=== PATIENT | female | born 1955 | race American Indian/Alaskan Native ===

== ENCOUNTER 2019-06-06 08:53 | Inpatient (IN) ==
--- NOTE | 2019-05-31 15:02 | PAT Medication Instructions ---
Medication Instructions Date of Service May 31, 2019 Home Medications acetaminophen [Tylenol Arthritis Pain] 1,300 mg PO Q12H PRN amlodipine 5 mg PO QAM aspirin 325 mg PO DAILY clonazepam [Klonopin] 1 mg PO HS cranberry 1,500 mg PO QAM diclofenac sodium 75 mg PO BID PRN fluoxetine 20 mg PO QAM ginkgo biloba 40 mg PO DAILY levetiracetam [Keppra] 1,000 mg PO QAM multivitamin [Multiple Vitamins] 1 tab PO DAILY oxycodone 5 mg PO Q8H PRN rosuvastatin [Crestor] 10 mg PO QAM turmeric 400 mg PO DAILY ASK your surgeon for instructions diclofenac sodium 75 mg PO BID PRN ASK your prescriber and surgeon aspirin 325 mg PO DAILY STOP taking 2 weeks before surgery (or as soon as possible if surgery is within 2 weeks) cranberry 1,500 mg PO QAM ginkgo biloba 40 mg PO DAILY turmeric 400 mg PO DAILY DO NOT take the morning of surgery multivitamin [Multiple Vitamins] 1 tab PO DAILY Take morning of surgery With a small sip of water, OTHERWISE NOTHING TO EAT OR DRINK AFTER MIDNIGHT: acetaminophen [Tylenol Arthritis Pain] 1,300 mg PO Q12H PRN (okay to take up to 4 hours prior to surgery if needed) amlodipine 5 mg PO QAM fluoxetine 20 mg PO QAM levetiracetam [Keppra] 1,000 mg PO QAM oxycodone 5 mg PO Q8H PRN (okay to take up to 4 hours prior to surgery if needed) rosuvastatin [Crestor] 10 mg PO QAM Take evening before surgery acetaminophen [Tylenol Arthritis Pain] 1,300 mg PO Q12H PRN (if needed) clonazepam [Klonopin] 1 mg PO HS oxycodone 5 mg PO Q8H PRN (if needed) Other Notes If you have any questions please call us at [phone] or [phone] or [phone] or [phone]
--- NOTE | 2019-05-31 15:24 | Anesthesiology Consultation ---
Date of Service May 31, 2019 Assessment & Plan (1) Encounter for pre-operative examination: Chart Review Chart Review: Acceptable Risk for Surgery (pending preop testing (labs, EKG, CXR)) and Patient seen in Pre Admission Testing Teaching & Discussion Pre-Anesthesia Teaching/Discussion Notes: Instructed NPO after midnight before surgery,except medications with 15 cc of water. Medication instructions provided according to the PAT guidelines. History Surgery Operation Date: 06/06/19 13:05 Proposed Procedures p L3-L5 Decompression and Fusion with Spinal Cord Monitoring - Cody Hanna DO Height/Weight Height: 5 ft 3 in Weight: 57.2 kg Allergies Allergy/AdvReac Type Severity Reaction Status Date / Time No Known Allergies Allergy Verified 05/31/19 14:37 Medications Home Medications Medication Instructions Recorded Confirmed Last Taken acetaminophen [Tylenol Arthritis 1,300 mg PO Q12H PRN 05/31/19 05/31/19 Unknown Pain] amlodipine 5 mg PO QAM 05/31/19 05/31/19 Unknown aspirin 325 mg PO DAILY 05/31/19 05/31/19 Unknown clonazepam [Klonopin] 1 mg PO HS 05/31/19 05/31/19 Unknown cranberry 1,500 mg PO QAM 05/31/19 05/31/19 Unknown diclofenac sodium 75 mg PO BID PRN 05/31/19 05/31/19 Unknown fluoxetine 20 mg PO QAM 05/31/19 05/31/19 Unknown ginkgo biloba 40 mg PO DAILY 05/31/19 05/31/19 Unknown levetiracetam [Keppra] 1,000 mg PO QAM 05/31/19 05/31/19 Unknown multivitamin [Multiple Vitamins] 1 tab PO DAILY 05/31/19 05/31/19 Unknown oxycodone 5 mg PO Q8H PRN 05/31/19 05/31/19 Unknown rosuvastatin [Crestor] 10 mg PO QAM 05/31/19 05/31/19 Unknown turmeric 400 mg PO DAILY 05/31/19 05/31/19 Unknown Past Medical History Medical History 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 = neurology monitoring, plan for repeat imaging 2019 Anxiety Chronic back pain Degenerative disc disease Depression Hyperlipidemia Hypertension Osteoarthritis Spinal stenosis Stroke bilateral infarctions of unclear etiology in setting of dehydration (2011)- residual memory loss, RUE weakness, depression/anxiety Transient ischemic attack (TIA) 2011 Exercise / Class Metabolic Activity III < 4 Walking/Shop/Light housework Past Surgical History Surgical History H/O left knee surgery History of colonoscopy History of tooth extraction S/P nasal surgery reconstruction surgery Past Anesthesia History No Hx of Anesthesia Complications and No Family Hx of Anesthesia Complications History of PONV No Hx of PONV and No Hx of Motion Sickness Social History Smoking Status: Current every day smoker tobacco type: cigarettes Smoking cigarettes per day: 4 Do You Dip or Chew Tobacco: No Hx Alcohol Use: Yes Alcohol type: beer alcohol intake frequency: other Hx Substance Use: Yes (medical card) substance use type: marijuana Last Used Substance Other:: 1 month ago Review of Systems Patient denies chest pain, shortness of breath, reflux, cough, wheezing, palpitations. Physical Exam Vital Signs VITALS BP 116/65 P 77 TEMP 98.0 SP02 95%RA RESP 20 PHYSICAL Full neck and c-spine range of motion. Full TMJ range of motion. TMD 3 finger breaths Mallampati Score 3 Dentition: partial dentures on upper/lower Lungs: clear throughout to auscultation Cardiac: regular rate and rhythm, no murmurs noted Spine: normal Carotid arteries: negative bruit Extremities: no edema Testing Other Testing MRI sb: 09/09/18: No acute intracranial abnormality detected on noncontrast MR imaging of the brain. Bilateral supratentorial multifocal encephalomalacia/gliosis compatible with sequela of chronic ischemic infarctions, as described above. Small chronic infarctions within the left caudate nucleus. Additional patchy nonspecific signal abnormality within cerebral white matter and haseeb may in the appropriate clinical setting represent sequelae of chronic small vessel ischemic disease. The patient's known left ICA terminus aneurysm is suboptimally evaluated, and best depicted on the prior MRA head exam.
--- NOTE | 2019-05-31 16:02 | XRay Report ---
XR chest Pre-admission PA/Lat HISTORY: Preop. COMPARISON: None. FINDINGS: Mild diffuse interstitial thickening. This is likely chronic. No focal lung consolidations to suggest pneumonia. No evidence for pulmonary edema. The heart is normal in size. No pleural effusi ons. No pneumothorax. The lungs are mildly hyperexpanded with apical predominant emphysematous change s. IMPRESSION: Emphysema with mild interstitial thickening which is likely chronic. Otherwise, no acute process with in the chest. Electronically signed by: Fredrick Barreto M.D. 05/31/2019 4:01 PM
[2019-05-31 16:38] LABS: Basophils # (auto) 0.02 K/uL (0-0.2); Basophils % (auto) 0.3 %; Eosinophils # (auto) 0.25 K/uL (0-0.5); Eosinophils % (auto) 3.3 %; Hematocrit (blood only) 39.6 % (37-47); Hemoglobin 12.9 g/dL (12.0-16.0); Immature Granulocytes # (auto) 0.02 K/uL (0.00-0.02); Immature Granulocytes % (auto) 0.3 %; Lymphocytes % (auto) 28.8 %; Mean Corpuscular Hgb Conc 32.6 g/dL (32-36); Mean Corpuscular Volume 99.5 fL (80-100); Mean Platelet Volume 9.9 fL (7.4-10.4); Monocytes # (auto) 0.64 K/uL (0.11-0.59); Monocytes % (auto) 8.4 %; Neutrophils % (auto) 58.9 %; Platelet Count 394 K/uL (130-400); RDW Coefficient of Variation 15.5 % (11.5-14.5); RDW Standard Deviation 56.3 fL (36.4-46.3); Red Blood Count 3.98 M/uL (4.2-5.4); White Blood Count 7.63 K/uL (4.8-10.8)
[2019-05-31 16:45] LABS: BUN Creatinine Ratio 26.5 (10-20); Calcium 8.9 mg/dl (8.5-10.1); Creatinine Clr Calc Pharmacy 58.9 ml/min; Est GFR (African American) 88.2; Est GFR (Non-African American) 76.1; Potassium 4.1 mmol/L (3.5-5.1)
[2019-05-31 16:48] LABS: INR 0.9 (0.9-1.1); Partial Thromboplastin Ratio 0.8; Prothrombin Time 9.7 Seconds (9.0-12.0)
[2019-05-31 16:55] LABS: Appearance Urine Cloudy (Clear); Bacteria Urine Automated 4+ (Negative); Blood Urine Negative (Negative); Color Urine Dark Yellow; Epithelial Cell Urine Auto >30 /lpf (0-5); Glucose Urine UA Negative (Negative); Ketones Urine Trace (Negative); Leukocyte Esterase Urine Trace (Negative); Nitrite Urine Positive (Negative); Protein Urine Negative (Negative); Specific Gravity Urine 1.034 (1.000-1.030); Urobilinogen Urine Negative (Negative)
[2019-05-31 16:58] LABS: Bilirubin Urine Negative (Negative); Ictotest Urine Negative (Negative)
[~2019-06-06 08:53] MED LIST: ACETAMINOPHEN 500 MG TAB PO SCH; CEFAZOLIN 1000MG 1,000 MG/7.5 ML SYR IV SCH; CeleBREX 200 MG CAP PO SCH; GABAPENTIN 600 MG DOSE PO SCH; LR 15ML/HR IV SCH
[2019-06-06] MEDS ORDERED: fentaNYL citrate 100 MCG/2 ML VIAL ONE ×2 (09:19→12:37)
[2019-06-06] MEDS ORDERED: MIDAZOLAM HCL 1 MG/ML 2ML VIAL ONE (09:19)
--- NOTE | 2019-06-06 10:18 | History & Physical Bridge Note ---
Date of Service June 06, 2019 History & Physical Bridge Note I have examined the patient, reviewed the History & Physical and in the interval since the performance of the History & Physical I have noted the following changes of clinical significance: no changes noted
--- NOTE | 2019-06-06 10:19 | History & Physical Report ---
Date of Service June 06, 2019 Assessment & Plan (1) Spinal stenosis, lumbar region with neurogenic claudication: L3-L5 decompression and fusion Present on Admission?: Yes History of Present Illness Chief Complaint: Back and leg pain Primary Care Provider: Dayami Root PA-C This is a 63-year-old female who presents with worsening back and bilateral leg pain. After failing extensive course of nonoperative care is here for surgical intervention. Allergies Allergy/AdvReac Type Severity Reaction Status Date / Time No Known Allergies Allergy Verified 06/06/19 09:17 Home Medications Home Medications Medication Instructions Recorded Confirmed Type acetaminophen [Tylenol Arthritis 1,300 mg PO Q12H PRN 05/31/19 06/06/19 History Pain] amlodipine 5 mg PO QAM 05/31/19 06/06/19 History aspirin 325 mg PO DAILY 05/31/19 06/06/19 History clonazepam [Klonopin] 1 mg PO HS 05/31/19 06/06/19 History cranberry 1,500 mg PO QAM 05/31/19 06/06/19 History diclofenac sodium 75 mg PO BID PRN 05/31/19 06/06/19 History fluoxetine 20 mg PO QAM 05/31/19 06/06/19 History ginkgo biloba 40 mg PO DAILY 05/31/19 06/06/19 History levetiracetam [Keppra] 500 mg PO BID 05/31/19 06/06/19 History multivitamin [Multiple Vitamins] 1 tab PO DAILY 05/31/19 06/06/19 History oxycodone 5 mg PO Q8H PRN 05/31/19 06/06/19 History rosuvastatin [Crestor] 10 mg PO QAM 05/31/19 06/06/19 History turmeric 400 mg PO DAILY 05/31/19 06/06/19 History Past Med/Surg History Medical History 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 = neurology monitoring, plan for repeat imaging 2019 Anxiety Chronic back pain Degenerative disc disease Depression Hyperlipidemia Hypertension Osteoarthritis Spinal stenosis Stroke bilateral infarctions of unclear etiology in setting of dehydration (2011)- residual memory loss, RUE weakness, depression/anxiety Transient ischemic attack (TIA) 2011 Surgical History H/O left knee surgery History of colonoscopy History of tooth extraction S/P nasal surgery reconstruction surgery Social History Preferred Language: Gambian Communication Ability: Effective Preschool Head Teacher Required: No Beliefs That Will Affect Care: None Current Living Situation: Alone Other Information That Helps Us Care for You: No Feels Safe at Home: Yes Safety Concerns: Feels Safe At This Time Smoking Status: Current every day smoker Tobacco Type: cigarettes ; Cigarettes Per Day: 4 ; Do You Dip or Chew Tobacco: No ; Second Hand Exposure: No ; Tobacco Cessation Education Requested by Patient: No Hx Alcohol Use: Yes Alcohol type: beer Hx Substance Use: Yes (medical card) substance use type: marijuana Last Used Vyas bstance Other:: 1 month ago Physical Exam Physical Exam: Patient is alert and oriented neurologically intact. Results & Data Vital Signs (Past 12 Hours) Vital Signs Temp Pulse Resp BP Pulse Ox 06/06/19 09:29 36.5 C 63 18 152/94 H 99
[2019-06-06] MEDS ORDERED: BACITRACIN INJ 50,000 UNIT VIAL ONE (10:42)
[2019-06-06] MEDS ORDERED: BUPIVACAINE/EPINEPHRINE 0.5% MPF 1:200,000 30 ML VIAL ONE (10:42)
[2019-06-06] MEDS ORDERED: fentaNYL citrate 100 MCG/2 ML VIAL IV PRN (11:21)
[2019-06-06] MEDS ORDERED: HYDROmorphone INJ 1 MG/ML SYRINGE IV PRN (11:21)
[2019-06-06] MEDS ORDERED: ONDANSETRON INJ 2 MG/ML 2 ML VIAL IV PRN ×2 (11:21→15:06)
[2019-06-06] MEDS ORDERED: ATROPINE SULFATE 0.1 MG/ML 10ML SYR IV PRN (11:21)
[2019-06-06] MEDS ORDERED: ePHEDrine sulfate 50 MG/ML AMP IV PRN (11:21)
--- NOTE | 2019-06-06 11:29 | Procedure Note ---
Procedure Note Date of Service June 06, 2019 Radial arterial line placed in OR 4 after induction in preparation for back surgery with Dr. Hanna. Left wrist prepped with chlorhexidine and draped with sterile towels. 20 G angiocath placed under sterile technique utilizing sterile gloves, surgical hats and masks. Catheter threaded using seldinger technique with return of pulsatile, bright red blood. Site covered with occlusive dressing and taped in place. Waveform consistent with correct arterial placement. After placement, fingers of procedural hand had normal perfusion. Patient tolerated procedure well without complications. Coding
[2019-06-06] MEDS ORDERED: ONDANSETRON INJ 2 MG/ML 2 ML VIAL ONE (12:12)
[2019-06-06] MEDS ORDERED: PHENYLEPHRINE HCL 10 MG/ML VIAL ONE (12:12)
[2019-06-06] MEDS ORDERED: ROCURONIUM BROMIDE 10 MG/ML 5 ML VIAL ONE (12:12)
[2019-06-06] MEDS ORDERED: PROPOFOL IV EMULSION 10 MG/ML 20 ML VIAL IV ONE (12:12)
[2019-06-06] MEDS ORDERED: LIDOCAINE HCL 2% 2 ML VIAL/AMP(20MG/ML) INFIL ONE (12:12)
[2019-06-06] MEDS ORDERED: ePHEDrine sulfate 50 MG/ML SYR ONE (12:12)
[2019-06-06] MEDS ORDERED: DEXAMETHASONE SOD INJ 4 MG/ML VIAL ONE (12:12)
[2019-06-06] MEDS ORDERED: NEOSTIGMINE METHYLSULFATE 1 MG/ML 10ML VIAL ONE (12:59)
[2019-06-06] MEDS ORDERED: GLYCOPYRROLATE 0.2 MG/ML VIAL ONE (12:59)
[2019-06-06] MEDS ORDERED: FLOSEAL HEMOSTATIC MATRIX 10ML TOP ONE (13:04)
--- NOTE | 2019-06-06 13:07 | Operative Report ---
Post Operative Report Pre & Post Diagnosis Operation Date: 06/06/19 10:25 Pre-Op Diagnosis: Spinal stenosis L3-L5 with neurogenic claudication Spondylolisthesis L4-5 Post-Op Diagnosis: Same Procedure Operation Date: 06/06/19 10:25 Actual Procedures #1 lumbar decompression with bilateral medial facetectomies foraminotomies L2-3 L3-4 L4-5. #2 posterior spinal fusion L3-4 L4-5 per #3 placed posterior instrumentation L3-4 L4-5 per #4 interbody fusion L3-4 and L4-5. #5 placed a peek cage 9 x 22 mm at L3-4 and 11 x 22 mm at L4-5 per #6 basement of local autograft in the posterior lateral gutters per #7 placement infuse collagen sponge combined with mass graft in the posterior lateral gutters. Surgeon Cody Hanna, DO [employer]ulic [employer] Tool Operator Susan Manuel Estimated Blood Loss 75 Findings Consistent with Post-Op Diagnosis Specimens None Indications This is a 63-year-old female presents with above-mentioned diagnosis after failing extensive course of nonoperative care elected to undergo the above- mentioned procedure. Description of Procedure Patient was met with identified and informed consent obtained. Patient was then taken to the operative suite underwent intubation placed in the prone position on the Geovany table on top of the Jean Paul frame. All bony prominences well- padded eyes inspected to ensure no external pressure placed upon the peer at this point the lumbar spine was prepped and draped in a normal sterile fashion. Sharp dissection with the assistance of Bovie cautery was performed down to and exposing the lamina and transverse processes of L3-L4-L5 bilaterally. From a caudal cephalad fashion complete laminectomy of L4 L3 and partial laminectomy of L2 was performed including bilateral medial facetectomies foraminotomies addressing severe stenosis. Obvious instability at L4-5 consistent with her spinal listhesis also noted. Pedicle screw was then placed in L3-L4-L5 bilaterally with assistance of fluoroscopy the process collin placed. By way of a trans-foraminal approach on the right a complete discectomy of L4-5 was performed endplates curetted to subcortical bleeding bone and a 11 x 22 mm peek cage filled with osteo-amp bone graft tapped in position. Then proceeded L3-[address] of a transforaminal approach complete discectomy performed endplates curetted to subcortical bleeding bone and a 9 x 22 mm peek cage filled with ostium bone graft tapped in position. The rods were then compressed and locked in final position bilaterally. The transverse processes of L3-L4-L5 bur to subcortical bleeding bone. Infuse collagen sponge mass graft and locally harvested morselized autograft placed in the posterior lateral gutters. 15 round LEVAR drain inserted. The incision was then closed with 1 Vicryl in the fascia 2-0 Vicryl subcutaneous and 4 Monocryl for final skin closure. Steri- Strip sterile dressings placed. Patient will continue PACU stable disc. Please note Susan Manuel present throughout the entire procedure involved in patient positioning complex portions of the surgery and final skin closure. Lastly spinal cord monitoring was utilized that the procedure no changes noted. I attest to the content of the Intraoperative Record and any orders documented therein. Any exceptions are noted below.
--- NOTE | 2019-06-06 13:54 | Fluoroscopy Report ---
FL lumbar spine 2-3V CLINICAL HISTORY: L3-L5 DECOMPRESSION AND FUSION COMPARISON STUDY: None. FLUOROSCOPY TIME: 17 seconds. FLUOROSCOPIC IMAGES: 2. FINDINGS: These images demonstrate L3-L4 and L4-L5 discectomies with interbody spacer placement. Post erior decompression is noted with bilateral pedicle screws at the L3, L4 and L5 levels. There are int erconnecting rods. Hardware is intact. IMPRESSION: Fluoroscopic images demonstrating L3-L5 discectomy and posterior fusion. Electronically signed by: Abel Cortes M.D. 06/06/2019 1:53 PM
--- NOTE | 2019-06-06 14:13 | Anesthesiology Progress Note ---
Date of Service June 06, 2019 Anesthesia Post Procedure Vital Signs Vital Signs: Temp Pulse Pulse Resp BP Pulse Ox 06/06/19 14:00 36.2 C L 60 15 137/64 100 06/06/19 13:50 66 12 129/67 100 06/06/19 13:40 65 14 130/72 100 06/06/19 13:30 75 16 109/77 100 06/06/19 13:20 36.2 C L 85 14 123/70 100 06/06/19 09:29 36.5 C 63 18 152/94 H 99 Pain Intensity Lower Back: Pain Intensity: 10 Transfer of Care Handoff Completed per policy Notes Mental Status: alert / awake / arousable and participated in evaluation Patient Amnestic to Procedure: Yes Nausea / Vomiting: adequately controlled Pain: adequately controlled Airway Patency, RR, SpO2: stable & adequate BP & HR: stable & adequate Hydration State: stable & adequate Anesthetic Complications: no major complications apparent and Pt Satisfied with anesthetic care Notes: Moving all extremities and back to preoperative baseline with respect to speech and mentation.
[2019-06-06] MEDS ORDERED: BISACODYL 10 MG SUPP PR PRN (15:06)
[2019-06-06] MEDS ORDERED: LORazepam 0.5 MG TAB PO PRN (15:06)
[2019-06-06] MEDS ORDERED: METOCLOPRAMIDE HCL INJ 5 MG/ML 2 ML VIAL IV PRN (15:06)
[2019-06-06] MEDS ORDERED: ACETAMINOPHEN 1,000 MG/100 ML VIAL IV PRN (15:06)
[2019-06-06] MEDS ORDERED: ACETAMINOPHEN 500 MG TAB PO PRN (15:06)
[2019-06-06] MEDS ORDERED: SOD PHOSPHATE/SOD BIPHOSPHATE ENEMA 132 ML BTL PR PRN (15:06)
[2019-06-06] MEDS ORDERED: PROMETHAZINE HCL 12.5 MG in SODIUM CHLORIDE 0.9% 50 ML IV PRN (15:06)
[2019-06-06] MEDS ORDERED: FAMOTIDINE 20 MG TAB PO PRN (15:06)
[2019-06-06] MEDS ORDERED: DO NOT ADMINISTER FLU VACCINE PRN (15:06)
[2019-06-06] MEDS ORDERED: NALOXONE HCL 0.4 MG/1 ML VIAL/CARP IV PRN (15:06)
[2019-06-06] MEDS ORDERED: ALUMINUM/MAGNESIUM SUSP 30 ML UDC PO PRN (15:06)
[2019-06-06] MEDS ORDERED: LORazepam 0.5 MG/1 ML VIAL IV PRN (15:06)
[2019-06-06] MEDS ORDERED: MAGNESIUM HYDROXIDE SUSP 30 ML UDC PO PRN (15:06)
[2019-06-06] MEDS ORDERED: ONDANSETRON 4 MG TAB PO PRN (15:06)
[2019-06-06] MEDS ORDERED: DO NOT ADMINISTER PNEUMOCOCCAL VACCINE PRN (15:06)
[2019-06-06] MEDS ORDERED: VANCOMYCIN HCL 1000MG/20ML VIAL IV STA (16:26)
[2019-06-06] MEDS ORDERED: VANCOMYCIN HCL 1,000 MG in SODIUM CHLORIDE 0.9% 250 ML IV ONE (16:45)
[2019-06-06] MEDS: LACTATED RINGER'S 1,000 ML IV SCH ×2 (18:09→20:43)
[2019-06-06] MEDS: CEFAZOLIN 1000MG 1,000 MG/7.5 ML SYR IV SCH (18:24)
[2019-06-06] MEDS: levETIRAcetam 500 MG TAB PO SCH (20:21)
[2019-06-06] MEDS: DOCUSATE SODIUM/SENNA 50/8.6MG TAB PO SCH (20:21)
[2019-06-06] MEDS: clonazePAM 1 MG TAB PO SCH (22:10)
[2019-06-07] MEDS: TRAMADOL HCL 50 MG TABLET PO PRN (02:17)
[2019-06-07] MEDS: CEFAZOLIN 1000MG 1,000 MG/7.5 ML SYR IV SCH (02:18)
[2019-06-07] MEDS: LACTATED RINGER'S 1,000 ML IV SCH (02:18)
[2019-06-07 06:00] LABS: Basophils # (auto) 0.01 K/uL (0-0.2); Basophils % (auto) 0.1 %; Hematocrit (blood only) 32.7 % (37-47); Hemoglobin 10.8 g/dL (12.0-16.0); Immature Granulocytes # (auto) 0.03 K/uL (0.00-0.02); Immature Granulocytes % (auto) 0.2 %; Lymphocytes # (auto) 1.31 K/uL (1.2-3.4); Lymphocytes % (auto) 10.5 %; Mean Corpuscular Volume 99.1 fL (80-100); Mean Platelet Volume 9.7 fL (7.4-10.4); Monocytes # (auto) 1.13 K/uL (0.11-0.59); Monocytes % (auto) 9.1 %; Neutrophils # (auto) 9.98 K/uL (1.4-6.5); Neutrophils % (auto) 80.1 %; Platelet Count 269 K/uL (130-400); RDW Coefficient of Variation 15.6 % (11.5-14.5); RDW Standard Deviation 56.7 fL (36.4-46.3); White Blood Count 12.46 K/uL (4.8-10.8)
[2019-06-07] MEDS: HYDROmorphone INJ 0.5 MG/0.5 ML SYR IV PRN ×5 (06:14→21:01)
[2019-06-07] MEDS: POLYETHYLENE (MIRALAX) 17 GM PACK PO SCH ×3 (06:14→17:54)
[2019-06-07 06:31] LABS: Calcium 8.4 mg/dl (8.5-10.1); Creatinine Clr Calc Pharmacy 111.1 ml/min; Est GFR (African American) 126.3; Est GFR (Non-African American) 108.9; Potassium 3.6 mmol/L (3.5-5.1)
--- NOTE | 2019-06-07 07:38 | Anesthesiology Progress Note ---
Date of Service June 07, 2019 Anesthesia Post Procedure Vital Signs Vital Signs: Temp Pulse Pulse Pulse Pulse Resp BP 06/07/19 07:31 36.5 C 72 18 119/75 06/07/19 02:10 36.6 C 60 14 128/73 06/06/19 23:47 36.5 C 72 14 115/72 06/06/19 17:46 36.4 C L 79 16 122/73 06/06/19 16:47 36.4 C L 70 17 88/58 L 06/06/19 15:45 64 18 111/63 06/06/19 15:15 36.4 C L 63 17 116/68 06/06/19 14:45 36.5 C 63 18 109/62 06/06/19 14:30 62 15 127/55 L 06/06/19 14:20 64 15 117/59 L 06/06/19 14:10 61 16 119/58 L 06/06/19 14:00 36.2 C L 60 15 137/64 06/06/19 13:50 66 12 129/67 06/06/19 13:40 65 14 130/72 06/06/19 13:30 75 16 109/77 06/06/19 13:20 36.2 C L 85 14 123/70 06/06/19 09:29 36.5 C 63 18 152/94 H Pulse Ox 06/07/19 07:31 99 06/07/19 02:10 97 06/06/19 23:47 96 06/06/19 17:46 100 06/06/19 16:47 06/06/19 15:45 06/06/19 15:15 100 06/06/19 14:45 06/06/19 14:30 06/06/19 14:20 100 06/06/19 14:10 100 06/06/19 14:00 100 06/06/19 13:50 100 06/06/19 13:40 100 06/06/19 13:30 100 06/06/19 13:20 100 06/06/19 09:29 99 Pain Intensity Lower Back: Pain Intensity: 5 Notes Mental Status: alert / awake / arousable and participated in evaluation Patient Amnestic to Procedure: Yes Nausea / Vomiting: adequately controlled Pain: adequately controlled Airway Patency, RR, SpO2: stable & adequate BP & HR: stable & adequate Hydration State: stable & adequate Anesthetic Complications: no major complications apparent
[2019-06-07] MEDS: AMLODIPINE BESYLATE 5 MG TAB PO SCH (08:12)
[2019-06-07] MEDS: levETIRAcetam 500 MG TAB PO SCH ×2 (08:12→21:03)
[2019-06-07] MEDS: MULTIVITAMIN TAB PO SCH (08:12)
[2019-06-07] MEDS: ASPIRIN 325 MG ECTAB PO SCH (08:12)
[2019-06-07] MEDS: FLUOXETINE HCL 20 MG CAP PO SCH (08:12)
[2019-06-07] MEDS: ROSUVASTATIN CALCIUM 10 MG TAB PO SCH (08:13)
[2019-06-07] MEDS ORDERED: NON-FORMULARY MEDICATION (Turmeric 400 MG) PO SCH (09:00)
[2019-06-07] MEDS ORDERED: GINKGO BILOBA 40 MG PO SCH (09:00)
[2019-06-07] MEDS ORDERED: CRANBERRY 1500 MG PO SCH (09:00)
--- NOTE | 2019-06-07 09:56 | Orthopedic Progress Note ---
Date of Service June 07, 2019 Assessment & Plan (1) Spinal stenosis, lumbar region with neurogenic claudication: This time will initiate physical therapy advance her bowel regimen anticipate discharge home . Present on Admission?: Yes Subjective Patient's back pain is controlled leg symptoms improved. Physical Exam Physical Exam: Patient is in the chair at the bedside. She has good strength testing. Results & Data Vital Signs (Past 12 Hours) Vital Signs Temp Pulse Resp BP Pulse Ox 06/07/19 07:31 36.5 C 72 18 119/75 99 06/07/19 02:10 36.6 C 60 14 128/73 97 06/06/19 23:47 36.5 C 72 14 115/72 96
[2019-06-07] MEDS: OXYCODONE HCL IR 5 MG TAB (IMMEDIATE RELEASE) PO PRN (19:47)
[2019-06-07] MEDS: DOCUSATE SODIUM/SENNA 50/8.6MG TAB PO SCH (21:03)
[2019-06-07] MEDS: clonazePAM 1 MG TAB PO SCH (22:07)
[2019-06-08] MEDS: POLYETHYLENE (MIRALAX) 17 GM PACK PO SCH ×4 (00:09→17:38)
[2019-06-08] MEDS: HYDROmorphone INJ 0.5 MG/0.5 ML SYR IV PRN (03:39)
[2019-06-08] MEDS: OXYCODONE HCL IR 5 MG TAB (IMMEDIATE RELEASE) PO PRN ×3 (07:31→17:37)
[2019-06-08] MEDS: levETIRAcetam 500 MG TAB PO SCH ×2 (08:44→21:47)
[2019-06-08] MEDS: MULTIVITAMIN TAB PO SCH (08:44)
[2019-06-08] MEDS: AMLODIPINE BESYLATE 5 MG TAB PO SCH (08:44)
[2019-06-08] MEDS: ROSUVASTATIN CALCIUM 10 MG TAB PO SCH (08:45)
[2019-06-08] MEDS: ASPIRIN 325 MG ECTAB PO SCH (08:45)
[2019-06-08] MEDS: FLUOXETINE HCL 20 MG CAP PO SCH (08:45)
[2019-06-08] MEDS ORDERED: HYDROmorphone INJ 1 MG/ML SYRINGE IV PRN (09:27)
[2019-06-08] MEDS ORDERED: HYDROmorphone INJ 1 MG/ML SYRINGE IV STA (09:27)
--- NOTE | 2019-06-08 09:32 | Orthopedic Progress Note ---
Date of Service June 08, 2019 Assessment & Plan (1) Spinal stenosis, lumbar region with neurogenic claudication: Patient struggling mostly with postoperative back pain. She does have a history of narcotic use exacerbating her pain. Unfortunately she is unable to tolerate NSAIDs and we cannot give Toradol. Continues intermittent IV Dilaudid and oral medicines at this time. Present on Admission?: Yes Subjective Patient complaining only of back pain. It is quite intense. Her leg pain is resolved. She is been tolerating therapy. Physical Exam Physical Exam: On exam she is sitting up at the bedside. She does have good strength testing. Dressings in place. Results & Data Vital Signs (Past 12 Hours) Vital Signs Temp Pulse Pulse Resp BP BP Pulse Ox 06/08/19 08:43 92 H 113/72 06/08/19 07:33 36.7 C 94 H 20 93/62 L 76/52 L 90 06/07/19 23:06 37.0 C 76 16 125/75 95
[2019-06-08 13:18] LABS: Appearance Urine Clear (Clear); Bacteria Urine Automated Negative (Negative); Bilirubin Urine Negative (Negative); Blood Urine Negative (Negative); Color Urine Yellow; Epithelial Cell Urine Auto >30 /lpf (0-5); Glucose Urine UA Negative (Negative); Ketones Urine Negative (Negative); Leukocyte Esterase Urine Trace (Negative); Nitrite Urine Negative (Negative); Protein Urine Negative (Negative); RBC Urine Automated 0-4 /hpf (0-4); Specific Gravity Urine 1.012 (1.000-1.030); Urobilinogen Urine Negative (Negative)
[2019-06-08] MEDS: TRAMADOL HCL 50 MG TABLET PO PRN (19:36)
[2019-06-08] MEDS: DOCUSATE SODIUM/SENNA 50/8.6MG TAB PO SCH (21:47)
[2019-06-08] MEDS: clonazePAM 1 MG TAB PO SCH (21:47)
[2019-06-09] MEDS: POLYETHYLENE (MIRALAX) 17 GM PACK PO SCH ×5 (00:41→23:55)
[2019-06-09] MEDS: TRAMADOL HCL 50 MG TABLET PO PRN ×3 (00:48→18:10)
[2019-06-09] MEDS: OXYCODONE HCL IR 5 MG TAB (IMMEDIATE RELEASE) PO PRN ×3 (05:20→21:08)
[2019-06-09] MEDS: AMLODIPINE BESYLATE 5 MG TAB PO SCH (08:25)
[2019-06-09] MEDS: MULTIVITAMIN TAB PO SCH (08:26)
[2019-06-09] MEDS: levETIRAcetam 500 MG TAB PO SCH ×2 (08:26→21:04)
[2019-06-09] MEDS: ASPIRIN 325 MG ECTAB PO SCH (08:26)
[2019-06-09] MEDS: ROSUVASTATIN CALCIUM 10 MG TAB PO SCH (08:26)
[2019-06-09] MEDS: FLUOXETINE HCL 20 MG CAP PO SCH (08:28)
--- NOTE | 2019-06-09 10:30 | Orthopedic Progress Note ---
Date of Service June 09, 2019 Assessment & Plan (1) Spinal stenosis, lumbar region with neurogenic claudication: Patient will continue with physical therapy today. We will DC the drain today. Most likely anticipate discharge home tomorrow. Present on Admission?: Yes Subjective Back pain still the most limiting component. Leg pain markedly improved. Physical Exam Physical Exam: Patient is in the chair at the bedside. She is good strength testing. Results & Data Vital Signs (Past 12 Hours) Vital Signs Temp Pulse Pulse Resp BP BP Pulse Ox 06/09/19 08:09 37.1 C 98 H 16 108/68 92 06/09/19 00:01 37.1 C 88 16 96/56 L 95
[2019-06-09] MEDS: clonazePAM 1 MG TAB PO SCH (21:04)
[2019-06-09] MEDS: DOCUSATE SODIUM/SENNA 50/8.6MG TAB PO SCH (21:04)
[2019-06-10] MEDS: OXYCODONE HCL IR 5 MG TAB (IMMEDIATE RELEASE) PO PRN ×2 (04:02→08:13)
[2019-06-10] MEDS: POLYETHYLENE (MIRALAX) 17 GM PACK PO SCH (05:33)
[2019-06-10] MEDS: MULTIVITAMIN TAB PO SCH (08:14)
[2019-06-10] MEDS: ROSUVASTATIN CALCIUM 10 MG TAB PO SCH (08:14)
[2019-06-10] MEDS: levETIRAcetam 500 MG TAB PO SCH (08:14)
[2019-06-10] MEDS: AMLODIPINE BESYLATE 5 MG TAB PO SCH (08:14)
[2019-06-10] MEDS: FLUOXETINE HCL 20 MG CAP PO SCH (08:14)
[2019-06-10] MEDS: ASPIRIN 325 MG ECTAB PO SCH (08:14)
--- NOTE | 2019-06-10 15:34 | Discharge Summary ---
Date of Service June 10, 2019 Admission HPI Per Admitting Provider This is a 63-year-old female who presents with worsening back and bilateral leg pain. After failing extensive course of nonoperative care is here for surgical intervention. Principal Diagnosis Lumbar spinal stenosis with neurogenic claudication Discharge Data Allergies Allergy/AdvReac Type Severity Reaction Status Date / Time No Known Allergies Allergy Verified 06/06/19 09:17 Consultations 06/06/19 15:06 Consult Case Management - Discharge Planning Routine Procedures Performed Operation Date: 06/06/19 10:25 Actual Procedures p L3-L5 Decompression and Fusion with Spinal Cord Monitoring; application of BMP(Not Applicable) - Cody Hanna DO Ordered Studies 06/06/19 07:00 FL fluoroscopy <1hr Routine FL lumbar spine 2-3V Routine Hospital Course (1) Spinal stenosis, lumbar region with neurogenic claudication: Patient underwent multilevel lumbar decompression fusion tolerated as well as taken to orthopedic for postoperative. Postop day 1 she was up and ambulating appropriately. Progressive postop day #2 and 3. LEVAR drain decreasing appropriately. Subsequent discharge on postop day #4. She is neurologically intact comfortable. Discharge orders instructions can be found the chart for further review. Total Time Total Time Spent Total Time Spent (In Minutes): 30 minutes Discharge Plan Discharge Items Patient Disposition: Home - Self-Care Reason For Visit: Spondylolisthesis, Lumbar Region Discharge Diagnosis: Lumbar spinal stenosis with spondylolisthesis Activity: Per Instructions section Non-emergency contact: Primary Care Provider Call non-emergency contact if: you have any medication questions Follow-up/Referrals: Dayami Root PA-C [Primary Care Provider] - Diet: Regular Addtl Attending Provider Instructions: ACTIVITY RECOMMENDATIONS: SELF CARE INSTRUCTIONS AFTER THORACIC/LUMBAR FUSIONS 1. You may walk to your tolerance. It is good exercise for your legs and back. Expect some back and intermittent leg aches and pains. 2. You may perform "counter-top" level activities (make a sandwich, tristan with a project, etc.). 3. No bending or lifting of more than 10 pounds or back twisting of any nature (roll like a log when turning in bed). 4. You may ride in a car for 20-30 minutes at a time. No driving until after your first visit with your doctor. 5. Frequent changes of position and restricting sitting to 30 minutes at a time will help limit the amount of back spasms and stiffness you may experience. 6. You may discontinue the use of ambulatory aids (cane, crutches, etc.) once your strength and confidence allow. 7. You may sterile processing technician the shower and let water strike your incision when you arrive home at least once daily. Do not take a tub bath, sit in a hot tub or go into a swimming pool until after your first recheck in the office. SPECIAL CARE INSTRUCTIONS: VERY IMPORTANT TO READ AND REVIEW A. Your surgical incision has been closed with a cosmetic suture under the skin that will dissolve in about 6 weeks. In 14 days, you can use a pair of clean scissors and cut the suture that is left outside of the skin at the ends of your incision. 1. The small skin tapes can be removed 7 days after surgery if they have not fallen off by that point. 2. You may keep the wound open to air as much as possible to promote healing after post-op day number 5 unless told otherwise by your doctor. 3. If you think the wound looks like it is becoming infected (redness or worsening drainage) and/or you are experiencing fever, chill or worsening back pain and muscle spasms, contact the office so that we may e valuate you as soon as possible. B. Complications are uncommon, but please contact us if you have any signs or symptoms of: 1. wound infection (fever higher than 102.5 degrees F, redness, separation of wound, drainage, or increasing pain from the incision) 2. blood clots in legs (pain, swelling, redness and warmth in legs) 3. urinary tract infection (fever higher than 102.5 degrees F, burning upon urination or increased frequency of urination) 4. nerve problems (inability to walk on your toes or heels, numbness, loss of bowel or bladder control) 5. any other symptoms that concern you C. Please call the office at if you have any concerns or questions about your operation or recovery. D. No smoking! Smoking drastically decreases the chance of a solid fusion. E. Do not take any anti-inflammatory medications (Indocin, Advil, Motrin, Aspirin, Naprosyn, etc.) as these may inhibit the chance of a solid fusion. Tylenol is okay to take for pain. MANAGING PAIN AFTER SPINAL SURGERY 1. Narcotic medication is intended for short-term use and will be provided for surgical pain. Surgical pain usually lasts for a period of 4-6 weeks. Narcotic medication includes Percocet, Vicodin, Darvocet, Tylenol #3 or Lortab. 2. Longer-term pain is more appropriately treated with non-narcotic medication such as Tylenol ES. 3. Muscle spasm is not appropriately treated with narcotics. Muscle relaxers such as Soma, Flexeril or Skelaxin can be used along with Tylenol ES. 4. Remember that we all live with some "aches and pains". This is not unusual or uncommon after an injury or as we get older. a. Back pain is expected and may include muscle spasms for 4 to 6 weeks after surgery. The pain should gradually improve. If the pain worsens for no apparent reason, please contact the office. b. Intermittent leg pain may also be experienced and should not be concerned about unless it worsens for no apparent reason. If so, please contact the office. 5. We will provide appropriate medication within the normal guidelines of their prescribed use. We will also be very cautious and aware of potential abuse and extended duration of patients' medication needs. a. Pain medications are for your comfort and to assist with sleep and rest so that the tissue can heal. They are not provided in order to return to normal activity and should not be used through the day. To do so or worsening pain at night can result from ongoing tissue damage and development of tolerance to the prescribed medicine. 6. Please allow 2-3 days to process refills. Prescriptions will not be mailed but must be picked up at the office. FOLLOW UP VISIT: Keep your scheduled follow-up appointment. Any questions, please call the office at . Addtl Separations Scientist Provider Instructions: ACTIVITY RECOMMENDATIONS: SELF CARE INSTRUCTIONS AFTER THORACIC/LUMBAR FUSIONS 1. You may walk to your tolerance. It is good exercise for your legs and back. Expect some back and intermittent leg aches and pains. 2. You may perform "counter-top" level activities (make a sandwich, tristan with a project, etc.). 3. No bending or lifting of more than 10 pounds or back twisting of any nature (roll like a log when turning in bed). 4. You may ride in a car for 20-30 minutes at a time. No driving until after your first visit with your doctor. 5. Frequent changes of position and restricting sitting to 30 minutes at a time will help limit the amount of back spasms and stiffness you may experience. 6. You may discontinue the use of ambulatory aids (cane, crutches, etc.) once your strength and confidence allow. 7. You may sterile processing technician the shower and let water strike your incision when you arrive home at least once daily. Do not take a tub bath, sit in a hot tub or go into a swimming pool until after your first recheck in the office. SPECIAL CARE INSTRUCTIONS: VERY IMPORTANT TO READ AND REVIEW A. Your surgical incision has been closed with a cosmetic suture under the skin that will dissolve in about 6 weeks. In 14 days, you can use a pair of clean scissors and cut the suture that is left outside of the skin at the ends of your incision. 1. The small skin tapes can be removed 7 days after surgery if they have not fallen off by that point. 2. You may keep the wound open to air as much as possible to promote healing after post-op day number 5 unless told otherwise by your doctor. 3. If you think the wound looks like it is becoming infected (redness or worsening drainage) and/or you are experiencing fever, chill or worsening back pain and muscle spasms, contact the office so that we may evaluate you as soon as possible. B. Complications are uncommon, but please contact us if you have any signs or symptoms of: 1. wound infection (fever higher than 102.5 degrees F, redness, separation of wound, drainage, or increasing pain from the incision) 2. blood clots in legs (pain, swelling, redness and warmth in legs) 3. urinary tract infection (fever higher than 102.5 degrees F, burning upon urination or increased frequency of urination) 4. nerve problems (inability to walk on your toes or heels, numbness, loss of bowel or bladder control) 5. any other symptoms that concern you C. Please call the office at if you have any concerns or questions about your operation or recovery. D. No smoking! Smoking drastically decreases the chance of a solid fusion. E. Do not take any anti-inflammatory medications (Indocin, Advil, Motrin, Aspirin, Naprosyn, etc.) as these may inhibit the chance of a solid fusion. Tylenol is okay to take for pain. MANAGING PAIN AFTER SPINAL SURGERY 1. Narcotic medication is intended for short-term use and will be provided for surgical pain. Surgical pain usually lasts for a period of 4-6 weeks. Narcotic medication includes Percocet, Vicodin, Darvocet, Tylenol #3 or Lortab. 2. Longer-term pain is more appropriately treated with non-narcotic medication such as Tylenol ES. 3. Muscle spasm is not appropriately treated with narcotics. Muscle relaxers such as Soma, Flexeril or Skelaxin can be used along with Tylenol ES. 4. Remember that we all live with some "aches and pains". This is not unusual or uncommon after an injury or as we get older. a. Back pain is expected and may include muscle spasms for 4 to 6 weeks after surgery. The pain should gradually improve. If the pain worsens for no apparent reason, please contact the office. b. Intermittent leg pain may also be experienced and should not be concerned about unless it worsens for no apparent reason. If so, please contact the office. 5. We will provide appropriate medication within the normal guidelines of their prescribed use. We will also be very cautious and aware of potential abuse and extended duration of patients' medication needs. a. Pain medications are for your comfort and to assist with sleep and rest so that the tissue can heal. They are not provided in order to return to normal activity and should not be used through the day. To do so or worsening pain at night can result from ongoing tissue damage and development of tolerance to the prescribed medicine. 6. Please allow 2-3 days to process refills. Prescriptions will not be mailed but must be picked up at the office. FOLLOW UP VISIT: Keep your scheduled follow-up appointment. Any questions, please call the office at . Please note that the patient will be requiring postoperative narcotic medications. It is reasonable for her to begin the medical marijuana for pain control once she has discontinued her narcotics for pain control. Pending Studies at Discharge: No Stand-Alone Forms: My [employer], Opioid Pain Management Medications and DC Order Prescriptions: New tramadol 50 mg Tablet 50 mg PO Q4H PRN (Reason: Pain, Moderate) Qty: 30 RF: 0 oxycodone 5 mg Tablet 5 mg PO Q4H PRN (Reason: Pain, Severe) Qty: 30 RF: 0 Continued multivitamin [Multiple Vitamins] Tablet 1 tab PO DAILY RF: 0 aspirin 325 mg Tablet 325 mg PO DAILY RF: 0 levetiracetam [Keppra] 500 mg Tablet 500 mg PO BID RF: 0 clonazepam [Klonopin] 1 mg Tablet 1 mg PO HS RF: 0 amlodipine 5 mg Tablet 5 mg PO QAM RF: 0 acetaminophen [Tylenol Arthritis Pain] 650 mg Tablet Extended Release 1,300 mg PO Q12H PRN (Reason: Pain) RF: 0 ginkgo biloba 40 mg Tablet 40 mg PO DAILY RF: 0 diclofenac sodium 75 mg Tablet,Delayed Release (Dr/Ec) 75 mg PO BID PRN (Reason: Pain) RF: 0 fluoxetine 20 mg Capsule 20 mg PO QAM RF: 0 cranberry 500 mg Capsule 1,500 mg PO QAM RF: 0 oxycodone 5 mg Tablet 5 mg PO Q8H PRN (Reason: Pain) RF: 0 rosuvastatin [Crestor] 10 mg Tablet 10 mg PO QAM RF: 0 turmeric 400 mg Capsule 400 mg PO DAILY RF: 0 Discharge Orders: Discharge Order (Routine); Ordered 06/10/19 Ordered By: Cody Hein/Other Patient Handouts: Surgery Prevent DVT After Admission Data Admit Date/Time: 06/06/19 13:11 Attending Provider: Cody Hanna Admit Provider: Cody Hanna Primary Care Provider: Dayami Root Other Interventions: Discharge Summary Assessment (RN) Last Done: 06/10/19 10:49 DC Date/Time DO NOT enter until pt leaves facility: 06/10/19 11:39
== END 2019-06-10 11:39 | disposition home or self-care (01) | DRG 454 ==
LOC: ASU 08:53 → 3E 13:11